=== PATIENT | male | born 1985 | race Asian ===

== ENCOUNTER 2016-11-14 19:45 | Emergency (ER) | payer BC ==
[~2016-11-14] VITALS: Ht 170.2 cm; Wt 84.7 kg
[2016-11-14 19:48] VITALS: BP 157/104
== END 2016-11-14 21:34 | disposition home or self-care (01) ==
LOC: ED 21:31
DX: J20.8 Acute bronchitis due to other specified organisms (principal)
CPT/HCPCS: 71020; 99284

== ENCOUNTER 2017-07-23 19:29 | Emergency (ER) | payer BC, OTHER ==
[~2017-07-23] VITALS: Ht 170.2 cm; Wt 82.1 kg
[2017-07-23 19:30] VITALS: BP 157/98
== END 2017-07-23 21:00 | disposition home or self-care (01) ==
LOC: ED 20:00
DX: S93.491A Sprain of other ligament of right ankle, initial encounter (principal); Y93.69 Activity, other involving other sports and athletics played as a team or group; Y92.89 Other specified places as the place of occurrence of the external cause; Y99.8 Other external cause status; X58.XXXA Exposure to other specified factors, initial encounter
CPT/HCPCS: 99284